=== PATIENT | female | born 1965 | race Hispanic/Latino ===

== ENCOUNTER 2017-09-12 21:34 | Emergency (ER) | payer SELFPAY ==
[2017-09-12 21:34] VITALS: BMI 31.1
[2017-09-12] MEDS ORDERED: Sodium Chloride 0.9% 1,000 ML IV ONE (22:20)
[2017-09-12] MEDS ORDERED: Sodium Chloride 0.9% 1,000 ML ONE (22:27)
[2017-09-12 22:33] LABS: HEMOGLOBIN 8.3 g/dL (11.0-16.0)
[2017-09-12] MEDS ORDERED: Iohexol 240 (50 ml) PO STA (22:33)
[2017-09-12 22:39] LABS: SQUAMOUS EPITHIAL 13 /hpf (0-5); URINE BACTERIA RARE (<OCC); URINE BILIRUBIN 1+ (NEGATIVE); URINE BLOOD NEGATIVE (NEGATIVE); URINE CLARITY Hazy (Clear); URINE COLOR Amber (YELLOW); URINE GLUCOSE (UA) NORMAL (Normal); URINE LEUKOCYTE ESTERASE 2+ Leu/uL (Negative); URINE PROTEIN NEGATIVE (NEGATIVE)
[2017-09-12 22:40] LABS: HCG,QUALITATIVE URINE NEGATIVE (NEGATIVE)
[2017-09-12] MEDS ORDERED: Iohexol 240 (50 ml) ONE (22:41)
[2017-09-12 22:44] LABS: INR 1.4; PROTHROMBIN TIME 15.7 SECONDS (9.7-12.2)
[2017-09-12 22:45] LABS: ALB/GLOB RATIO 0.7 (1.0-2.1); ALBUMIN 3.3 g/dL (3.5-5.0); ALT/SGPT 32 U/L (9-52); AST/SGOT 15 U/L (14-36); BLOOD UREA NITROGEN 11 mg/dL (7-17); GFR AFRICAN-AMERICAN > 60; GFR NON-AFRICAN AMERICAN > 60; LIPASE 64 U/L (23-300)
[2017-09-12 22:47] LABS: BASO # 0.1 K/uL (0.0-0.2); BASO % 0.7 % (0.0-2.0); EOS # 0.2 K/uL (0.0-0.7); EOS % 1.3 % (0.0-4.0); LYMPH % 10.6 % (20.0-40.0); MEAN CELL VOLUME 75.6 fL (81.0-99.0); MEAN CORPUSCULAR HEMOGLOBIN 23.9 pg (27.0-31.0); MEAN CORPUSCULAR HGB CONC 31.6 g/dL (33.0-37.0); MEAN PLATELET VOLUME 7.6 fL (7.2-11.7); MONO % 5.5 % (0.0-10.0); NEUT # 15.2 K/uL (1.8-7.0); NEUT % 81.9 % (50.0-75.0); RBC 3.47 Mil/uL (3.80-5.20); WHITE BLOOD COUNT 18.6 K/uL (4.8-10.8)
[2017-09-12] MEDS ORDERED: Iohexol 350mg/ml 100 ML ONE (23:20)
[2017-09-13] MEDS ORDERED: Piperacillin/Tazobact 3.375 gm 100 ML IVPB STA (00:25)
--- NOTE | 2017-09-13 00:29 | C.PDOC ---
Time Seen by Provider: 09/12/17 22:05 Chief Complaint (Nursing): Abdominal Pain History Per: Patient, Family Onset/Duration Of Symptoms: Days (about 1 month), Persistent Current Symptoms Are (Timing): Still Present Severity: Moderate Quality Of Discomfort: "Pain" Associated Symptoms: Nausea, Loss Of Appetite Exacerbating Factors: Movement, Food Alleviating Factors: None Last Bowel Movement: Yesterday Additional History Per: Prior Records Past Medical History Reviewed: Historical Data, Nursing Documentation, Vital Signs Vital Signs: Last Vital Signs Temp 97.8 F 09/12/17 21:50 Pulse 92 H 09/12/17 21:50 Resp 20 09/12/17 21:50 BP 108/69 09/12/17 21:50 Pulse Ox 96 09/13/17 00:34 - Medical History PMH: No Chronic Diseases Surgical History: No Surg Hx - [facility] Procedures OTHER SKIN & SUBQ I D (12/25/13) Family History: States: Unknown Family Hx - Social History Hx Tobacco Use: Yes Hx Alcohol Use: No Hx Substance Use: No - Immunization History Hx Tetanus Toxoid Vaccination: Yes Hx Influenza Vaccination: Yes Hx Pneumococcal Vaccination: No Review Of Systems Except As Marked, All Systems Reviewed And Found Negative. Constitutional: Negative for: Fever Cardiovascular: Negative for: Chest Pain Respiratory: Negative for: Shortness of Breath Gastrointestinal: Positive for: Abdominal Pain. Negative for: Diarrhea, Melena , Hematochezia, Hematemesis Genitourinary: Negative for: Dysuria Musculoskeletal: Negative for: Neck Pain Skin: Negative for: Rash Neurological: Negative for: Weakness, Numbness Physical Exam - Physical Exam Appears: Non-toxic, No Acute Distress Skin: Normal Color, Warm, Dry Head: Atraumatic, Normacephalic Eye(s): bilateral: PERRL, EOMI Neck: Normal ROM, Supple Cardiovascular: Rhythm Regular Respiratory: Normal Breath Sounds, No Accessory Muscle Use Gastrointestinal/Abdominal: Tenderness, Mass Back: No CVA Tenderness Extremity: Normal ROM Neurological/Psych: Oriented x3, Normal Motor, Normal Sensation ED Course And Treatment - Laboratory Results Result Diagrams: 09/12/17 22:27 09/12/17 22:27 Lab Interpretation: Abnormal Interpretation Of Abnormal: Leukocytosis. Anemia. Urine POC: Negative O2 Sat by Pulse Oximetry: 96 Pulse Ox Interpretation: Normal - CT Scan/US CT abd/pelv Other Rad Studies (CT/US): Read By Radiologist, Radiology Report Reviewed CT/US Interpretation: IMPRESSION: 1. Colon obstruction caused by severe mid transverse colon thickening and inflammation, either from. neoplasm or inflammatory colitis. Few locules of free air surrounding the mid transverse colon. Acute. diverticulitis is probably less likely given lack of diverticula in the remaining colon. Followup. colonoscopy is recommended. 2. Small complex appearing fluid collections within or intimately abutting the mid transverse colon. wall measure 1.2 x 2.9 cm and 1.4 x 2.5 cm. Phlegmonous change or developing abscess superior to. transverse colon measures 4.5 x 3.2 cm. Progress Note: Pt wants to leave AMA right now. She states she is planning on going to a hospital in [facility]. She is also refusing antibiotics as she is planning on going to another hospital right now. Against Medical Advice - AMA Patient Left Against Medical Advice: The patient declines admission to the hospital and wishes to leave the Emergency Department. This action is against my medical advice. This decision was made with informed refusal. The patient was told that admission to the hospital is necessary. Explanation of the reasons why were discussed. The risks of leaving were explained to the patient and include, but are not limited to, worsening of known or currently unknown conditions, permanent disability and from undiagnosed or untreated conditions. The patient has the capacity to make this informed decision and understands my explanation of the current medical problem and risks of leaving. The patient voluntarily accepts these risks and signed an AMA form documenting our conversation. The patient was given the opportunity to ask questions and reconsider. The patient was encouraged to return to the Emergency Department at any time for further care. Progress - Interventions Interventions:: Observation, Intravenous fluid - Medications Administered Intravenous: Antiemetic, H-2 louis - Data Reviewed Data Reviewed: Lab, Diagnostic imaging, Old records Disposition Counseled Patient/Family Regarding: Studies Performed, Diagnosis, Need For Followup, Smoking Cessation - Disposition Referrals: [facility] [Outside] Disposition: AGAINST MEDICAL ADVICE Disposition Time: 00:32 Condition: SERIOUS Additional Instructions: Go to the other hospital as you're planning as soon as possible. Return to the ER if you change your mind, develop worsening of symptoms or if you have any other concerns. Instructions: Leaving Against Medical Advice, Mechanical Bowel Obstruction (DC) - Clinical Impression Clinical Impression: Colon obstruction, Abdominal fluid collection, Left against medical advice
[2017-09-13 00:46] VITALS: BP 110/68; PULSE 78; RESP 99; TEMP 98; O2SAT 20
--- NOTE | 2017-09-13 10:50 | CT ---
Date of service: 09/12/2017 PROCEDURE: CT Abdomen and Pelvis with contrast HISTORY: Abd pain x 1 month. Mass felt on exam. COMPARISON: None. TECHNIQUE: CT scan of the abdomen and pelvis was performed after administration of intravenous contrast. Oral contrast was administered. Coronal and sagittal reformatted images were obtained. Contrast dose: 100 mL Omnipaque 350 carline Radiation dose: Total exam DLP = 506.55 mGy-cm. This CT exam was performed using one or more of the following dose reduction techniques: Automated exposure control, adjustment of the mA and/or kV according to patient size, and/or use of iterative reconstruction technique. FINDINGS: LOWER THORAX: The visualized lungs are clear. LIVER: Normal in size with homogeneous enhancement. No gross lesion or ductal dilatation. GALLBLADDER AND BILE DUCTS: Contracted. PANCREAS: Normal in size with homogeneous enhancement. No gross lesion or ductal dilatation. SPLEEN: Normal in size with homogeneous enhancement. ADRENALS: No discrete nodule. KIDNEYS AND URETERS: Normal in size with homogeneous enhancement. No hydronephrosis. No solid mass. VASCULATURE: No aortic aneurysm. BOWEL: The small bowel loops are normal in caliber. There severe dilatation of fluid-filled ascending colon and mild circumferential mural thickening in the hepatic flexure. There is severe circumferential mural thickening in the proximal transverse colon with significant pericolonic inflammatory changes. There is also reactive thickening in the pylorus. There are few tiny lock is of air superior to the proximal transverse colon. There is an apparent 4.9 x 3.21 cm heterogeneous hyperdense collection with tiny locular of air anterior and superior to the transverse colon. Also noted is a 2.7 x 1.4 cm hyperdense area in the mid posterior transverse colon. Similar collection is also noted in the anterior wall of the mid transverse colon which measures 1.9 x 0.9 cm. The left hemicolon is decompressed. APPENDIX: Normal appendix. PERITONEUM: No free fluid. No free air. LYMPH NODES: No enlarged lymph nodes. BLADDER: Grossly normal in appearance. REPRODUCTIVE: The uterus is normal in size. BONES: No acute fracture. Within normal limits for the patient's age. OTHER FINDINGS: None. IMPRESSION: Moderate circumferential mural thickening in the proximal and mid transverse colon with significant pericolonic inflammatory changes in the proximal transverse colon. Also noted is an approximately 4.9 x 3.1 cm phlegmon/ developing abscess anterior sub superior to the proximal transverse colon and small fluid collections in the anterior and posterior wall of the mid transverse colon, the larger in the posterior wall measures 2.7 x 1.4 cm. Severe dilatation of fluid-filled ascending colon is concerning for proximal transverse colonic obstruction. Findings could be related to obstructing neoplasm or nonspecific infectious/inflammatory colitis. Clinical follow-up and endoscopic correlation is warranted. A preliminary report was provided by [employer].
== END 2017-09-13 00:47 | disposition left against medical advice (07) ==
LOC: C.ER 21:34
DX: K56.609 Unspecified intestinal obstruction, unspecified as to partial versus complete obstruction (principal); R18.8 Other ascites
CPT/HCPCS: 74177; 80053; 81001; 83690; 84703; 85025; 85610; 85730; 87086; 96361; 96374; 96375; 99285; J2405; J7030; Q9966; Q9967

== ENCOUNTER 2017-10-07 12:36 | Emergency (ER) | payer MEDICAID ==
[2017-10-07 12:36] VITALS: BMI 31.1
[2017-10-07 12:47] VITALS: BP 114/75; PULSE 89; RESP 18; TEMP 98.2; O2SAT 99
--- NOTE | 2017-10-07 13:27 | C.PDOC ---
History Of Present Illness 52 y/o female presents to ED s/p surgery on 09/18/17 in [place] for SBO. Patient states she was supposed to go back to surgeon for staple removal but car battery and called office who advised she go to any emergency room for staple removal. Patient denies fever, chills, drainage from wound site or any other complaints at this time. Time Seen by Provider: 10/07/17 12:48 Chief Complaint (Nursing): Suture/Staple Removal History Per: Patient History/Exam Limitations: no limitations Onset/Duration Of Symptoms: Days Ago Current Symptoms Are (Timing): Still Present Past Medical History Reviewed: Historical Data, Nursing Documentation, Vital Signs Vital Signs: Last Vital Signs Temp 98.2 F 10/07/17 12:45 Pulse 89 10/07/17 12:45 Resp 18 10/07/17 12:45 BP 114/75 10/07/17 12:45 Pulse Ox 99 10/07/17 14:24 - Medical History PMH: No Chronic Diseases Surgical History: No Surg Hx - [facility] Procedures OTHER SKIN & SUBQ I D (12/25/13) Family History: States: No Known Family Hx - Social History Hx Tobacco Use: Yes Hx Alcohol Use: No Hx Substance Use: No - Immunization History Hx Tetanus Toxoid Vaccination: Yes Hx Influenza Vaccination: Yes Hx Pneumococcal Vaccination: No Review Of Systems Constitutional: Negative for: Fever, Chills Gastrointestinal: Positive for: Abdominal Pain. Negative for: Nausea, Vomiting Musculoskeletal: Negative for: Back Pain Skin: Negative for: Rash, Bruising Physical Exam - Physical Exam Appears: Non-toxic, No Acute Distress Skin: Warm, Dry, No Rash Head: Atraumatic, Normacephalic Eye(s): bilateral: Normal Inspection Oral Mucosa: Moist Cardiovascular: Rhythm Regular Respiratory: Normal Breath Sounds, No Rales, No Rhonchi, No Wheezing Gastrointestinal/Abdominal: Soft, No Tenderness, No Guarding, No Rebound, Other (45 denys intact to midline vertical incision. No signs of infection) Neurological/Psych: Oriented x3, Normal Speech, Normal Cognition ED Course And Treatment O2 Sat by Pulse Oximetry: 99 (RA) Pulse Ox Interpretation: Normal Progress Note: Spoke to Yady who did surgery on patient 09/18. Surgeon agrees for denys to be removed. 45 denys removed, patient tolerated procedure well with no complications. Disposition - Disposition Referrals: [facility] Yi, [Non-Staff] - Disposition: HOME/ ROUTINE Disposition Time: 13:40 Condition: GOOD Additional Instructions: RINA LYON, thank you for letting us take care of you today. Your provider was Vinod Joyce DO and you were treated for WOUND CHECK. The emergency medical care you received today was directed at your acute symptoms. If you were prescribed any medication, please fill it and take as directed. It may take several days for your symptoms to resolve. Return to the Emergency Department if your symptoms worsen, do not improve, or if you have any other problems. Please contact your doctor or call one of the physicians/clinics you have been referred to that are listed on the Patient Visit Information form that is included in your discharge packet. Bring any paperwork you were given at discharge with you along with any medications you are taking to your follow up visit. Our treatment cannot replace ongoing medical care by a primary care provider outside of the emergency department. Thank you for allowing the [facility] team to be part of your care today. Follow up with your surgeon this week for re-evaluation and further management. Instructions: Staple Removal Forms: [employer] (Andorran) - Clinical Impression Clinical Impression: Removal of staple - Scribe Statement The provider has reviewed the documentation as recorded by the Lilianeibflorentin Watkins All medical record entries made by the Lilianeibflorentin were at my direction and personally dictated by me. I have reviewed the chart and agree that the record accurately reflects my personal performance of the history, physical exam, medical decision making, and the department course for this patient. I have also personally directed, reviewed, and agree with the discharge instructions and disposition.
== END 2017-10-07 13:48 | disposition home or self-care (01) ==
LOC: C.ER 12:36
DX: Z48.02 Encounter for removal of sutures (principal)

== ENCOUNTER 2018-01-23 19:01 | Emergency (ER) | payer MEDICAID ==
[2018-01-23 19:02] VITALS: BMI 31.1
[2018-01-23 19:17] VITALS: BP 115/58; PULSE 84; RESP 18; TEMP 97.9; O2SAT 100
--- NOTE | 2018-01-23 19:46 | C.PDOC ---
History Of Present Illness 52 y/o female,w/PMhx of hidradenitis, presents to the ER complaining of increased swelling with large abscesses to bilateral axillas. Patient states that she has developed an abscess to the left thigh as well. Patient reports that she has associated subjective fever at home. Time Seen by Provider: 01/23/18 19:23 Chief Complaint (Nursing): Abnormal Skin Integrity History Per: Patient History/Exam Limitations: no limitations Onset/Duration Of Symptoms: Days Current Symptoms Are (Timing): Still Present Severity: Moderate Past Medical History Reviewed: Historical Data, Nursing Documentation, Vital Signs Vital Signs: Last Vital Signs Temp 97.9 F 01/23/18 19:11 Pulse 84 01/23/18 19:11 Resp 18 01/23/18 19:11 BP 115/58 L 01/23/18 19:11 Pulse Ox 100 01/23/18 19:11 - Medical History PMH: No Chronic Diseases Other Surgeries: Hx of surgeries - [facility] Procedures OTHER SKIN & SUBQ I D (12/25/13) Family History: States: No Known Family Hx - Social History Hx Tobacco Use: Yes Hx Alcohol Use: No Hx Substance Use: No - Immunization History Hx Tetanus Toxoid Vaccination: Yes Hx Influenza Vaccination: Yes Hx Pneumococcal Vaccination: No Review Of Systems Except As Marked, All Systems Reviewed And Found Negative. Constitutional: Positive for: Fever (subjective fever). Negative for: Chills Skin: Positive for: Other (abscesses to bilateral axillas and left thigh) Physical Exam - Physical Exam Appears: Non-toxic, No Acute Distress Skin: Normal Color, Warm, Dry, Other (abscess to bilateral axillas with multiple septations, induration, and drainage) Head: Atraumatic, Normacephalic Eye(s): bilateral: Normal Inspection Nose: Normal Oral Mucosa: Moist Neck: Supple Chest: Symmetrical Cardiovascular: Rhythm Regular Respiratory: Normal Breath Sounds, No Rales, No Rhonchi, No Wheezing Extremity: Normal ROM, Tenderness (tenderness to bilateral axillas), Swelling (swelling to bilateral axillas) Neurological/Psych: Oriented x3, Normal Speech Gait: Steady ED Course And Treatment - Laboratory Results Result Diagrams: 01/23/18 20:07 01/23/18 20:01 O2 Sat by Pulse Oximetry: 100 (RA) Pulse Ox Interpretation: Normal Medical Decision Making Medical Decision Making: Plan: --Labs --Cleocin PO --Tylenol PO Patient is requesting to be admitted for surgery. the case was discussed with residential green building designer Dr. Robertson and Dr. Luis (general surgeon oncall) who state the patient has normal labs, no fever, and on exam does not require admission at this time. Patient will follow up outpatient. Disposition - Disposition Referrals: Raz Luis MD [Staff Provider] - Disposition: HOME/ ROUTINE Disposition Time: 21:06 Condition: STABLE Additional Instructions: Apply warm compresses to the region and do warm sitz baths (sitting in a warm tub) at least twice a day. Follow up with the general surgeon within 1 week. Return if worsened. Prescriptions: Acetaminophen [Tylenol] 325 mg PO Q6 PRN #30 tab PRN Reason: Pain, Moderate (4-7) Clindamycin [Cleocin] 300 mg PO TID #30 cap Instructions: Hidradenitis Suppurativa Forms: [employer] (Swedish) - Clinical Impression Clinical Impression: Hidradenitis suppurativa, Abscess - PA / STAFF ANESTHESIOLOGIST / Resident Statement MD/ has reviewed & agrees with the documentation as recorded. - Scribe Statement The provider has reviewed the documentation as recorded by the Lilianeibe Cuba Harper Provider Attestation All medical record entries made by the Scribe were at my direction and personally dictated by me. I have reviewed the chart and agree that the record accurately reflects my personal performance of the history, physical exam, medical decision making, and the department course for this patient. I have also personally directed, reviewed, and agree with the discharge instructions and disposition.
[2018-01-23 20:06] LABS: BASO # 0.1 K/uL (0.0-0.2); BASO % 0.9 % (0.0-2.0); EOS # 0.1 K/uL (0.0-0.7); EOS % 1.3 % (0.0-4.0); LYMPH # 1.6 K/uL (1.0-4.3); LYMPH % 13.9 % (20.0-40.0); MEAN CORPUSCULAR HEMOGLOBIN 24.4 pg (27.0-31.0); MEAN CORPUSCULAR HGB CONC 32.1 g/dL (33.0-37.0); MEAN PLATELET VOLUME 7.3 fL (7.2-11.7); MONO # 0.9 K/uL (0.0-0.8); MONO % 7.5 % (0.0-10.0); NEUT # 8.7 K/uL (1.8-7.0); NEUT % 76.4 % (50.0-75.0); RBC 4.32 Mil/uL (3.80-5.20); RED CELL DISTRIBUTION WIDTH 15.7 % (11.5-14.5); WHITE BLOOD COUNT 11.4 K/uL (4.8-10.8)
[2018-01-23 20:08] LABS: HEMOGLOBIN 10.6 g/dL (11.0-16.0)
[2018-01-23 20:32] LABS: ALB/GLOB RATIO 0.8 (1.0-2.1); ALBUMIN 3.8 g/dL (3.5-5.0); ALT/SGPT 22 U/L (9-52); AST/SGOT 14 U/L (14-36); BLOOD UREA NITROGEN 10 mg/dL (7-17); CALCIUM 8.8 mg/dl (8.6-10.4); GFR NON-AFRICAN AMERICAN > 60
== END 2018-01-23 21:14 | disposition home or self-care (01) ==
LOC: C.ER 19:01
DX: L73.2 Hidradenitis suppurativa (principal); L02.412 Cutaneous abscess of left axilla; L02.411 Cutaneous abscess of right axilla